=== PATIENT | female | born 1980 | race Caucasian/White ===

== ENCOUNTER 2020-10-07 12:49 | Emergency (ER) | payer OTHER ==
[~2020-10-07] VITALS: Ht 167.6 cm; Wt 80.9 kg
--- NOTE | 2020-10-07 13:04 | NUR ---
PATIENT WALKED BACK FROM TRIAGE WITH CHIEF C/O CHEST PAIN THAT STARTED AROUND 10 AM THIS MORNING. PATIENT REPORTS PAIN IS ON THE LEFT SIDE, PAIN RADIATES UP LEFT SIDE OF NECK, PATIENT DENIES N/V/D, DENIES SOB. PATIENT REPORTS PAIN A 5/10 SHARP PRESSURE. PATIENT STATES SHE HAS SOME TINGLING ON THE LEFT SIDE OF HER FACE. BP IS 153/103, HR IS 76. NADN, SIGNIFICANT OTHER AT BEDSIDE, CONNECTED TO DRYWALL FINISHER, CALL LIGHT WITHIN REACH.
[2020-10-07] MEDS ORDERED: SODIUM CHLORIDE FLUSH 10ML SYR IVF ONE (13:30)
[2020-10-07] MEDS ORDERED: LORazepam 2 MG/ML, 1ML IVPush ONE (13:30)
[2020-10-07] MEDS ORDERED: ONDANSETRON 2MG/ML, 2ML IVPush ONE (13:30)
[2020-10-07] MEDS ORDERED: KETOROLAC 30 MG/1 ML IVPush ONE (13:30)
[2020-10-07] MEDS ORDERED: ONDANSETRON 2MG/ML, 2ML ONE (13:32)
[2020-10-07] MEDS ORDERED: KETOROLAC 30 MG/1 ML ONE (13:32)
[2020-10-07] MEDS ORDERED: LORazepam 2 MG/ML, 1ML ONE (13:33)
--- NOTE | 2020-10-07 13:41 | NUR ---
ERMD AT BEDSIDE FOR EVALUATION.
--- NOTE | 2020-10-07 13:56 | NUR ---
20 GAUGE IV STARTED RIGHT HAND, BLOOD COLLECTED AND SENT TO LAB, PATIENT MEDICATED PER eMAR, NO FURTHER NEEDS AT THIS TIME.
[2020-10-07 14:03] LABS: BASOPHILS % (AUTO) 1 % (0-1); EOSINOPHILS % (AUTO) 1 % (1-7); LYMPHOCYTES % (AUTO) 27 % (22-44); MEAN CORPUSCULAR HGB CONC 33.5 g/dL (32.4-35.8); MEAN PLATELET VOLUME 8.4 fL (7.4-10.4); MONOCYTES % (AUTO) 7 % (2-9); NEUTROPHILS % (AUTO) 64 % (42-75); PLATELET COUNT 307 x10^3/uL (130-400)
[2020-10-07 14:09] LABS: ANION GAP 5 mmol/L (5-15); CALCIUM 8.9 mg/dL (8.5-10.1); CHLORIDE 108 mmol/L (98-107); CREATININE 0.77 mg/dL (0.55-1.02); MD NO
[2020-10-07 14:10] LABS: ALANINE AMINOTRANSFERASE 25 U/L (12-78); ALBUMIN 3.8 g/dL (3.4-5.0)
[2020-10-07 14:15] LABS: ALKALINE PHOSPHATASE 86 U/L (45-117); BILIRUBIN,TOTAL 0.3 mg/dL (0.2-1.0); TOTAL PROTEIN 7.8 g/dL (6.4-8.2); TROPONIN I < 0.015 ng/mL (0.000-0.045)
[2020-10-07 14:27] VITALS: BP 130/82
--- NOTE | 2020-10-07 14:40 | NUR ---
Patient given discharge instructions and prescription and they have confirmed that they understand the instructions. Patient stable and ambulatory with steady gait from ED with significant other.
== END 2020-10-07 14:41 | disposition home or self-care (01) ==
LOC: ED 13:27
DX: R07.89 Other chest pain (principal); I10 Essential (primary) hypertension
CPT/HCPCS: 36415; 71045; 80053; 84484; 84703; 85025; 93005; 96374; 96375; 99285; J1885; J2060; J2405

== ENCOUNTER 2020-10-22 15:21 | Emergency (ER) | payer MEDICAID ==
[~2020-10-22] VITALS: Ht 167.6 cm; Wt 80.0 kg
[2020-10-22 15:37] VITALS: BP 132/97
--- NOTE | 2020-10-22 16:23 | NUR ---
pharmacy analyst note: Pt to room from lobby.
--- NOTE | 2020-10-22 16:28 | NUR ---
PT TO ROOM 15 W/ C/O L FOOT PAIN AFTER PT FELL OFF A STEP STOOL. [facility].
[2020-10-22] MEDS ORDERED: KETOROLAC 30 MG/1 ML IM ONE (16:30)
[2020-10-22] MEDS ORDERED: KETOROLAC 30 MG/1 ML ONE (16:32)
[2020-10-22] MEDS ORDERED: HYDROcodone/APAP 5/325 TABLET ONE (16:50)
[2020-10-22] MEDS ORDERED: HYDROcodone/APAP 5/325 TABLET PO ONE (17:00)
== END 2020-10-22 17:26 | disposition home or self-care (01) ==
LOC: ED 16:30
DX: S93.402A Sprain of unspecified ligament of left ankle, initial encounter (principal); S93.602A Unspecified sprain of left foot, initial encounter; F10.10 Alcohol abuse, uncomplicated; I10 Essential (primary) hypertension; F17.210 Nicotine dependence, cigarettes, uncomplicated; W01.0XXA Fall on same level from slipping, tripping and stumbling without subsequent striking against object, initial encounter; Y93.89 Activity, other specified; Y92.098 Other place in other non-institutional residence as the place of occurrence of the external cause; Y99.8 Other external cause status; Y90.0 Blood alcohol level of less than 20 mg/100 ml
CPT/HCPCS: 73610; 73630; 96372; 99284; 99406; J1885

== ENCOUNTER 2020-10-30 16:23 | Emergency (ER) | payer MEDICAID ==
[~2020-10-30] VITALS: Ht 167.6 cm; Wt 82.3 kg
--- NOTE | 2020-10-30 16:48 | NUR ---
PT BIB FAMILY VIA POV. PT REPORTS, "MY ASTHMA IS ACTING UP." PT USED HOME INHALER WITHOUT RELIEF. PT RESTING IN [facility] AT THIS TIME, RR 20, O2 SAT 97% RA, HR 88, MONITORING IN PLACE, WCTM. FAMILY MEMBER AT BEDSIDE.
--- NOTE | 2020-10-30 17:15 | NUR ---
PT RESTING IN DR. JOSIE BRADY AT BEDSIDE.
[2020-10-30] MEDS ORDERED: ALBUTEROL SULFATE 2.5 MG/3 ML NPPB ONE (17:30)
[2020-10-30 17:46] LABS: BASOPHILS % (AUTO) 1 % (0-1); EOSINOPHILS % (AUTO) 0 % (1-7); LYMPHOCYTES % (AUTO) 20 % (22-44); MEAN CORPUSCULAR HEMOGLOBIN 28.4 pg (27.0-34.8); MEAN CORPUSCULAR HGB CONC 33.9 g/dL (32.4-35.8); MEAN PLATELET VOLUME 8.1 fL (7.4-10.4); MONOCYTES % (AUTO) 9 % (2-9); NEUTROPHILS % (AUTO) 71 % (42-75); PLATELET COUNT 265 x10^3/uL (130-400); RED BLOOD COUNT 4.83 x10^6/uL (3.82-5.3); RED CELL DISTRIBUTION WIDTH 15.7 % (9.6-15.2)
[2020-10-30 17:50] LABS: ALBUMIN 3.8 g/dL (3.4-5.0); ANION GAP 7 mmol/L (5-15); CALCIUM 8.6 mg/dL (8.5-10.1); CHLORIDE 113 mmol/L (98-107); CREATININE 0.74 mg/dL (0.55-1.02)
[2020-10-30 17:53] LABS: MD NO
[2020-10-30] MEDS ORDERED: ALBUTEROL/IPRATROPIUM 2.5MG/0.5MG, 3 ML ONE (17:53)
[2020-10-30] MEDS ORDERED: ALBUTEROL SULFATE 2.5 MG/3 ML ONE (17:57)
[2020-10-30 18:24] VITALS: BP 135/85
== END 2020-10-30 18:49 | disposition home or self-care (01) ==
LOC: ED 17:12
DX: J45.41 Moderate persistent asthma with (acute) exacerbation (principal); R06.02 Shortness of breath; R94.31 Abnormal electrocardiogram [ECG] [EKG]; I10 Essential (primary) hypertension
CPT/HCPCS: 36415; 71045; 80048; 82040; 85025; 93005; 94640; 99285; J7512; J7613

== ENCOUNTER 2020-12-16 14:41 | Emergency (ER) | payer MEDICAID ==
[~2020-12-16] VITALS: Ht 170.2 cm; Wt 82.2 kg
--- NOTE | 2020-12-16 15:00 | NUR ---
PT HAS CO DIZZINESS. ALSO ON MENSTRAUL PERIOD WITH ABNORMAL BLEEDING AND PAINFUL CRAMPING.
[2020-12-16 16:20] LABS: CALCIUM 8.7 mg/dL (8.5-10.1); CREATININE 0.72 mg/dL (0.55-1.02)
[2020-12-16 16:27] LABS: ANION GAP 7 mmol/L (5-15); CHLORIDE 107 mmol/L (98-107); MEAN PLATELET VOLUME 8.1 fL (7.4-10.4)
[2020-12-16 16:29] LABS: BASOPHILS % (AUTO) 1 % (0-1); EOSINOPHILS % (AUTO) 1 % (1-7); LYMPHOCYTES % (AUTO) 26 % (22-44); MEAN CORPUSCULAR HEMOGLOBIN 29.3 pg (27.0-34.8); MEAN CORPUSCULAR HGB CONC 33.7 g/dL (32.4-35.8); MONOCYTES % (AUTO) 10 % (2-9); NEUTROPHILS % (AUTO) 63 % (42-75); PLATELET COUNT 276 x10^3/uL (130-400); RED BLOOD COUNT 5.24 x10^6/uL (3.82-5.3); RED CELL DISTRIBUTION WIDTH 16.6 % (9.6-15.2)
--- NOTE | 2020-12-16 16:30 | NUR ---
PT RESTING, LABS, US PENDING. VSS
[2020-12-16 16:31] LABS: MD NO
[2020-12-16 16:34] LABS: MICROSCOPIC NOT IND
[2020-12-16 17:40] VITALS: BP 145/85
--- NOTE | 2020-12-16 17:41 | NUR ---
Patient/Caregiver given discharge instructions and they have confirmed that they understand the instructions. Patient ambulatory with steady gait.
== END 2020-12-16 17:43 | disposition home or self-care (01) ==
LOC: ED 15:36
DX: N92.0 Excessive and frequent menstruation with regular cycle (principal); Z87.891 Personal history of nicotine dependence; R94.31 Abnormal electrocardiogram [ECG] [EKG]
CPT/HCPCS: 36415; 80048; 81003; 84702; 85025; 93005; 99284